=== PATIENT | female | born 1935 | race Caucasian/White ===

== ENCOUNTER 2018-03-15 12:57 | Inpatient (IN) ==
--- NOTE | 2018-03-15 13:48 | Emergency Department Note ---
Abdominal Pain HPI - General Chief Complaint: Abdominal Pain Stated Complaint: Abd pain, constipation Time Seen by Provider: 03/15/18 13:33 Source: EMS Mode of arrival: EMS Limitations: no limitations - History of Present Illness HPI Narrative: 82-year-old female who was brought in by ambulance secondary to back pain for one week. She states the pain in her back has gotten worse gradually. She also had a routine blood test done yesterday showing a white count of 14,000 also elevated pro calcitonin. She's also had frequency of urination. No bowel movement in the last 3 days. She has been a little bit nauseated, not vomiting, denies chest pain or shortness of breath. Former smoker, quit about 40 years ago. Significant history of stroke and atrial fibrillation 2 years ago with residual left-sided weakness MD Complaint: abdominal pain - Related Data Home Medications Medication Instructions Recorded Confirmed Hydrocodone/APAP 7.5/325Mg [[place] 1 tab PO Q6HP PRN 06/03/16 08/21/16 7.5/325Mg] Warfarin [Coumadin] 7.5 mg PO DAILY 06/03/16 08/21/16 Acetaminophen [Tylenol] 650 mg PO Q4-6HP PRN 08/21/16 08/21/16 Bisacodyl [Dulcolax] 10 mg NE DAILYP PRN 08/21/16 08/21/16 Docusate Sodium [Colace] 100 mg PO PRN PRN 08/21/16 08/21/16 Magnesium Hydroxide [Milk of 30 ml PO PRN PRN 08/21/16 08/21/16 Magnesia] Na Phos,M-B/Na Phos,Di-Ba [Fleets 1 NE PRN PRN 08/21/16 Adult] Sertraline HCl [Zoloft] 25 mg PO DAILY 08/21/16 08/21/16 Allergies Allergy/AdvReac Type Severity Reaction Status Date / Time dabigatran etexilate Allergy Unknown Unknown Verified 03/15/18 12:58 [From Pradaxa] lisinopril Allergy Unknown Unknown Verified 03/15/18 12:58 Review of Systems All systems ED: reviewed and negative except as stated. Constitutional: Reports: chills, weakness. Denies: fever ENT ED: Denies: ear pain, throat pain Cardiovascular: Reports: dyspnea on exertion. Denies: chest pain Respiratory: Denies: cough Gastrointestinal: Reports: abdominal pain, nausea. Denies: vomiting Genitourinary: Reports: frequency. Denies: dysuria, urgency Neurological: Reports: weakness. Denies: headache Endocrine: Reports: fatigue Abdominal Pain PMH - Past Medical History Attestation: Yes: The following information was validated with the patient. Medical history: Reports: atrial fibrillation, CVA, hypertension Surgical history ED: Reports: non-contributory Family history: Reports: non-contributory - Social History Smoking status: Former smoker Alcohol use: Reports: None Drug use: Reports: none Physical Exam Limitations: no limitations General appearance: alert, in no apparent distress Head: atraumatic, normocephalic Eye: Present: normal appearance, PERRL, EOMI. Absent: conjunctival injection, nystagmus ENT: mucous membranes dry, other (edentulous upper) Neck: Present: normal inspection, full ROM, trachea midline, other (decreased range of motion expected for age and condition.). Absent: tenderness, meningismus Chest: Present: normal inspection, symmetric chest wall rise Respiratory: Present: normal lung sounds bilaterally. Absent: respiratory distress, rales/crackles, wheezes Cardiovascular: Present: irregular rhythm, normal heart sounds Abdominal: Present: soft, tenderness, guarding. Absent: distention Abdominal tenderness: Present: RLQ Extremities: Present: other (contracted left arm and hand with very limited range of motion. Week on the left upper extremity as well.). Absent: calf tenderness Back: Present: normal inspection, full ROM, tenderness, CVA tenderness (L) Neurological: Present: alert, oriented X3, motor sensory deficit, other (old residual left-sided deficit.). Absent: normal gait Psychiatric: Present: depressed, flat affect Skin: Present: warm, dry, intact Course - Reevaluation(s) Reevaluation #1: Patient started on IV fluids. We did obtain a catheter urine sample which clearly was positive for nitrates as well as showing numerous wbc's and bacteria. Given that she has right-sided flank pain I think she has pyelonephritis with a white count of 18,000 and a CRP of 32 I think she clearly needs to be in the hospital. I discussed this with Dr. Pryor and he will be happy to see her here in the department, she was started on Rocephin after we thomas blood cultures. She does have a history of atrial fibrillation, EKG still pending at this time. Patient was given morphine for pain. Also Tylenol. Vital Signs Temperature 98.0 F 03/15/18 12:58 Pulse Rate 87 03/15/18 12:58 Respiratory Rate 20 03/15/18 12:58 Blood Pressure 160/142 03/15/18 12:58 Pulse Oximetry (%) 100 03/15/18 12:58 Temperature 99.9 F H 03/15/18 14:04 Pulse Rate 66 03/15/18 14:08 Respiratory Rate 20 03/15/18 14:35 Blood Pressure 99/68 03/15/18 14:26 Pulse Oximetry (%) 75 L 03/15/18 14:08 Abdominal Pain - MDM Narrative Medical decision making narrative: Final diagnosis is urosepsis, history of CVA with residual l left-sided weakness . History of atrial fibrillation. - Lab Data Result diagrams: 03/15/18 13:30 03/15/18 13:30 Lab Results 03/15/18 03/15/18 03/15/18 Range/Units 13:30 13:30 13:51 WBC 18.6 H (4.5-11.0) K/mcL RBC 3.59 L (4.00-5.20) M/mcL Hgb 11.5 L (12.0-15.0) g/dL Hct 35.0 L (36.0-48.0) % MCV 97.6 (80.0-100.0) fL MCH 32.2 (26.0-34.0) pg MCHC 33.0 (31.0-36.0) g/dL RDW 13.2 (11.5-14.5) % Plt Count 276 (140-440) K/mcL MPV 9.9 (7.4-10.4) fL Gran % 84.6 H (38.0-78.0) % Lymph % (Auto) 8.6 L (15.5-49.0) % [place] % (Auto) 6.5 (1.0-12.0) % Eos % (Auto) 0 (0.0-7.0) % Baso % (Auto) 0.3 (0.0-2.0) % Gran # 15.8 H (1.8-8.0) K/mcL Lymph # (Auto) 1.6 (1.5-4.8) K/mcL [place] # (Auto) 1.2 H (0.1-0.9) K/mcL Eos # (Auto) 0 (0.0-0.7) K/mcL Baso # (Auto) 0 (0.0-0.3) K/mcL VBG Lactic Acid (0.5-2.0) mmol/L Sodium 135 (133-145) mmol/L Potassium 4.5 (3.3-5.1) mmol/L Chloride 99 (96-108) mmol/L Carbon Dioxide 23 (22-30) mmol/L Anion Gap 13.0 (8-16) BUN 28 H (8-23) mg/dl Creatinine 1.6 H (0.6-1.1) mg/dl GFR Calculation 30 Glucose 97 (70-105) mg/dL Calcium 9.5 (8.6-10.4) mg/dl Total Bilirubin 1.4 H (0.0-1.0) mg/dL AST 15 (0-37) U/l ALT 8 (0-40) U/l Alkaline Phosphatase 74 (39-117) U/L C-Reactive Protein 32.7 H (0.0-0.8) mg/dl Total Protein 7.6 (5.9-8.4) gm/dL Albumin 3.6 (3.2-5.2) gm/dL Globulin 4.0 H (2.2-3.7) gm/dL Albumin/Globulin Ratio 0.9 L (1.0-2.3) Procalcitonin (<0.10) ng/mL Urine Color Urine Appearance Urine pH (5.0-9.0) Ur Specific [place] (1.000-1.035) Urine Protein (NEG) mg/dL Urine Glucose (UA) (NEG) mg/dL Urine Ketones (NEG) mg/dL Urine Occult Blood (<0.03) mg/dL Urine Nitrate (NEG) Urine Bilirubin (NEG) mg/dL Urine Urobilinogen (NEG) mg/dL Ur Leukocyte Esterase (NEG) /uL Urine RBC (0-1) /hpf Urine WBC (0-4) /hpf Ur Squamous Epith Cells (0-4) /hpf Urine Bacteria (0) /hpf Urine Mucus (0) /hpf Ur Culture Indicated? 03/15/18 03/15/18 03/15/18 Range/Units 13:51 13:52 14:00 WBC (4.5-11.0) K/mcL RBC (4.00-5.20) M/mcL Hgb (12.0-15.0) g/dL Hct (36.0-48.0) % MCV (80.0-100.0) fL MCH (26.0-34.0) pg MCHC (31.0-36.0) g/dL RDW (11.5-14.5) % Plt Count (140-440) K/mcL MPV (7.4-10.4) fL Gran % (38.0-78.0) % Lymph % (Auto) (15.5-49.0) % [place] % (Auto) (1.0-12.0) % Eos % (Auto) (0.0-7.0) % Baso % (Auto) (0.0-2.0) % Gran # (1.8-8.0) K/mcL Lymph # (Auto) (1.5-4.8) K/mcL [place] # (Auto) (0.1-0.9) K/mcL Eos # (Auto) (0.0-0.7) K/mcL Baso # (Auto) (0.0-0.3) K/mcL VBG Lactic Acid 1.3 (0.5-2.0) mmol/L Sodium (133-145) mmol/L Potassium (3.3-5.1) mmol/L Chloride (96-108) mmol/L Carbon Dioxide (22-30) mmol/L Anion Gap (8-16) BUN (8-23) mg/dl Creatinine (0.6-1.1) mg/dl GFR Calculation Glucose (70-105) mg/dL Calcium (8.6-10.4) mg/dl Total Bilirubin (0.0-1.0) mg/dL AST (0-37) U/l ALT (0-40) U/l Alkaline Phosphatase (39-117) U/L C-Reactive Protein (0.0-0.8) mg/dl Total Protein (5.9-8.4) gm/dL Albumin (3.2-5.2) gm/dL Globulin (2.2-3.7) gm/dL Albumin/Globulin Ratio (1.0-2.3) Procalcitonin 7.28 (<0.10) ng/mL Urine Color Yellow Urine Appearance Turbid Urine pH 5.0 (5.0-9.0) Ur Specific [place] 1.015 (1.000-1.035) Urine Protein 30 A (NEG) mg/dL Urine Glucose (UA) Negative (NEG) mg/dL Urine Ketones Neg (NEG) mg/dL Urine Occult Blood 0.03 A (<0.03) mg/dL Urine Nitrate Neg (NEG) Urine Bilirubin Neg (NEG) mg/dL Urine Urobilinogen Neg (NEG) mg/dL Ur Leukocyte Esterase 500 A (NEG) /uL Urine RBC 0 (0-1) /hpf Urine WBC > 182 H (0-4) /hpf Ur Squamous Epith Cells 14 H (0-4) /hpf Urine Bacteria Many A (0) /hpf Urine Mucus Mod (0) /hpf Ur Culture Indicated? No Disposition Pt seen by TRAM DRIVER/PA only: No Clinical Impression: Pyelonephritis, Atrial fibrillation, Stroke Disposition: Xfer As Inpt ([facility]) Condition: Fair Referrals: Jethro Borja MD [Primary Care Provider] -
[2018-03-15] MEDS ORDERED: ACETAMINOPHEN 325 MG TABLET PO ONE (13:52)
[2018-03-15] MEDS: 0.9 % SODIUM CHLORIDE 1,000 ML IV ONE ×2 (14:04→15:05)
[2018-03-15 14:18] LABS: Basophils # (Auto) 0 K/mcL (0.0-0.3); Basophils % (Auto) 0.3 % (0.0-2.0); Eosinophils # (Auto) 0 K/mcL (0.0-0.7); Eosinophils % (Auto) 0 % (0.0-7.0); Granulocytes % (Auto) 84.6 % (38.0-78.0); Lymphocytes # (Auto) 1.6 K/mcL (1.5-4.8); Lymphocytes % (Auto) 8.6 % (15.5-49.0); Mean Cell Volume 97.6 fL (80.0-100.0); Monocytes # (Auto) 1.2 K/mcL (0.1-0.9); Monocytes % (Auto) 6.5 % (1.0-12.0); Platelet Count 276 K/mcL (140-440); RBC 3.59 M/mcL (4.00-5.20); Red Cell Distribution Width 13.2 % (11.5-14.5)
--- NOTE | 2018-03-15 14:36 | XRay Report ---
CLINICAL INFORMATION: fever COMPARISON: 06/14/2016 FINDINGS: Moderate cardiomegaly is unchanged. Mediastinum and pulmonary vessels are normal. The lungs are clear. No effusions. IMPRESSION: Moderate stable cardiomegaly. No acute disease Interpreted and Authenticated by: Zac Garcia 03/15/18
[2018-03-15 14:44] LABS: Appearance,Urine TURBID; Bacteria,Urine MANY /hpf (0); Bilirubin,Urine NEG (NEG); Color,Urine YELLOW; Glucose,Urine (UA) NEGATIVE (NEG); Leukocyte Esterase,Urine 500 /uL (NEG); Mucus,Urine MOD /hpf (0); Protein,Urine 30 mg/dL (NEG); Specific Gravity,Urine 1.015 (1.000-1.035); Urine Blood 0.03 mg/dL (<0.03); Urine RBC 0 /hpf (0-1); Urine Squamous Epithelial Cell 14 /hpf (0-4); Urine WBC > 182 /hpf (0-4); Urobilinogen,Urine NEG (NEG)
[2018-03-15 14:46] LABS: ALT/SGPT 8 U/l (0-40); Albumin 3.6 gm/dL (3.2-5.2); Albumin/Globulin Ratio 0.9 (1.0-2.3); Alkaline Phosphatase 74 U/L (39-117); Blood Urea Nitrogen 28 mg/dl (8-23)
[2018-03-15] MEDS ORDERED: cefTRIAXone 1 GM VIAL IV ONE ×2 (14:47→20:00)
[2018-03-15] MEDS ORDERED: LACTATED RINGERS 1,000 ML IV ONE ×2 (15:06→17:29)
--- NOTE | 2018-03-15 15:56 | Internal Med History&Physical ---
Medical - H&P: HPI Patient information: Note initiated : 03/15/18 at 3:52 pm Service Date, if different from initiated Date: [] Patient: Lakisha Bills a 82 y/o F admitted on for Abd Pain, Constipation. Chief Complaint: [] History of present illness: Ms. Bills is a 82 year old F who lives in a ch[facility], history of CVA, usually ambulates with the help of a walker comes to the emergency room for evaluation of back pain that has been going on for the last 1 week. The patient notes that the back pain started a week ago H in the mid and lower back, and radiates on the sides as well as the flanks. Patient notes that the pain has been constant since then, the patient rates the pain severe. She notes that the pain is worse with ambulation, and better with rest. The pain has been associated with some nausea, and vomiting. That happened 2 days ago. She is also constipated for the last 2 days she admits to being constipated because the pain has prevented her from going to the bathroom. The patient denies any urinary complaints. According to the ER provider the patient had some urine studies sent yesterday and it showed that she had a UTI and an elevated pro-calcitonin, on reviewing her labs today the patient was sent here for further evaluation In the ER the patient had a low-grade temperature 99.9, heart rate 85 blood pressure 109/67 [had dropped to as low as 71/31] saturating 91% on room air. Chest x-ray shows cardiomegaly no acute infiltrates Labs show WBC count of 18.6, hemoglobin 11.5 platelets 276, lactic acid 1.3, total bili Liang 1.4 sodium 135 potassium 4.5 creatinine 1.6 bicarbonate 23 glucose 97. CRP elevated at 37.7, pro calcitonin elevated at 7.28. The patient is being admitted to the hospital for further management Pt wishes for DNR, comfort care? but ok with bipap? notes ok to do what we feel is needed to help her. POA was called by ER provider, it seems they are ok with interventions . All systems: reviewed and no additional remarkable complaints except as stated (as per HPI rest negative) Medical - H&P: PMH Medical history: Medical History Stroke (Acute) Atrial fibrillation (Acute) HTN HLD Obesity Osteoporosis GERD Back pain Surgical history: hip replacement surgery Family history: reviewed and not pertinent Pertinent family history: Father had parkinsons. Social history: lives in SNF Ex smoker no active drug use reported Medical - H&P: Meds Home Medications Medication Instructions Recorded Confirmed Type Acetaminophen [Tylenol] 650 mg PO BIDP PRN 08/21/16 03/15/18 History Bisacodyl [Dulcolax] 10 mg MO DAILYP PRN 08/21/16 03/15/18 History Docusate Sodium [Colace] 100 mg PO BIDP PRN 08/21/16 03/15/18 History Na Phos,M-B/Na Phos,Di-Ba [Fleets 1 tube MO PRN PRN 08/21/16 03/15/18 History Adult] Sertraline HCl [Zoloft] 25 mg PO DAILY 08/21/16 03/15/18 History Baclofen 5 mg PO TID 03/15/18 03/15/18 History Furosemide [Lasix] 40 mg PO DAILY 03/15/18 03/15/18 History HYDROcodone/APAP 5/325MG [[place] 1 tab PO Q6HP PRN 03/15/18 03/15/18 History 5-325Mg] LORazepam [Ativan] 2 mg IM ONCE PRN 03/15/18 03/15/18 History Lactobacillus [Culturelle] 1 cap PO BID 03/15/18 03/15/18 History Loperamide [Imodium] 2 mg PO PRN PRN 03/15/18 03/15/18 History Magnesium Hydroxide [Milk of 400 mg PO PRN PRN 03/15/18 03/15/18 History Magnesia] Metoprolol Tartrate 100 mg PO BID 03/15/18 03/15/18 History Nitroglycerin [Nitrostat] 0.4 mg SL Q5MINP PRN 03/15/18 03/15/18 History Ondansetron HCl [Zofran] 8 mg PO Q8H PRN 03/15/18 03/15/18 History Ranitidine HCl [Heartburn Relief] 75 mg PO BID 03/15/18 03/15/18 History Rivaroxaban [Xarelto] 20 mg PO DAILY 03/15/18 03/15/18 History Spironolactone [Aldactone] 25 mg PO DAILY 03/15/18 03/15/18 History Telmisartan [Micardis] 80 mg PO DAILY 03/15/18 03/15/18 History Vits A and D/White Pet/Lanolin [A 42.5 gm TP PRN PRN 03/15/18 03/15/18 History and D Ointment] amLODIPine [Norvasc] 10 mg PO DAILY 03/15/18 03/15/18 History Allergies Allergy/AdvReac Type Severity Reaction Status Date / Time dabigatran etexilate Allergy Unknown Unknown Verified 03/15/18 12:58 [From Pradaxa] lisinopril Allergy Unknown Unknown Verified 03/15/18 12:58 Medical - H&P: Exam - Constitutional Vitals: Temp Pulse Resp BP Pulse Ox 97.2 F 77 22 124/104 94 03/15/18 15:03 03/15/18 15:26 03/15/18 15:41 03/15/18 15:32 03/15/18 15:26 Exam: GENERAL: The patient is a well-developed, well-nourished in no apparent distress. Is alert and oriented x3. VITAL SIGNS: Reviewed and as noted elsewhere. HEENT: Head is normocephalic and atraumatic. Extraocular muscles are intact. Pupils are equal, round, and reactive to light. Nares appeared normal. Mouth appears any without lesions. Mucous membranes are dry . NECK: Normal to inspection, Supple, No lymphadenopathy or thyromegaly. LUNGS: Air entry equal on both sides, no wheezing, crackles or rhonchi noted. No accessory muscles of respiration HEART: Regular rate and irrhythm normal, S1 and S2 heard, no Gallop, S3 or Rub Noted, No Gross murmur heard. ABDOMEN: Soft, large pannus, positive bowel tones, bilateral flank tenderness present, moving the patient also causes back pain. EXTREMITIES: No cyanosis, clubbing, rash, lesions or edema. NEUROLOGIC: Cranial nerves II through XII are grossly intact. Motor and Sensory System Grossly Intact PSYCHIATRIC: Normal affect, Normal Mood. Appropriate Behavior. SKIN: No ulceration or wounds noted, No jaundice, No rash noted. Medical - H&P: Reslt - Labs CBC & Chem 7: 03/15/18 13:30 03/15/18 13:30 Labs: Short CBC 03/15/18 Range/Units 13:30 WBC 18.6 H (4.5-11.0) K/mcL Hgb 11.5 L (12.0-15.0) g/dL Hct 35.0 L (36.0-48.0) % Plt Count 276 (140-440) K/mcL BMP 03/15/18 13:30 Sodium 135 Potassium 4.5 Chloride 99 Carbon Dioxide 23 BUN 28 H Creatinine 1.6 H Glucose 97 Calcium 9.5 Liver Function 03/15/18 Range/Units 13:30 Total Bilirubin 1.4 H (0.0-1.0) mg/dL AST 15 (0-37) U/l ALT 8 (0-40) U/l Alkaline Phosphatase 74 (39-117) U/L Albumin 3.6 (3.2-5.2) gm/dL Urine 03/15/18 Range/Units 14:00 Urine Color Yellow Urine Appearance Turbid Urine pH 5.0 (5.0-9.0) Ur Specific [place] 1.015 (1.000-1.035) Urine Protein 30 A (NEG) mg/dL Urine Glucose (UA) Negative (NEG) mg/dL Medical - H&P: A/P - Narrative A/P Narrative: A/P Acute pyleonephritis, -Patient has back pain, UTI clinically has pyelonephritis, treated with IV Rocephin, urine cultures blood culture sent de-escalate antibiotics per sensitivity. Back pain, severe -She also has significant muscle spasm it seems along with flank tenderness, I will treat this with IV Tylenol and narcotics as needed. Use methocarbamol for muscle relaxation see how she responds. Consider CT abdomen and pelvis tomorrow if the patient does not show any signs of improvement Sepsis -Low blood pressure documented in the ED but responded to IV fluids, give 1 more liter LR bolus, and then maintenance fluids lactic acid is normal treat underlying condition h/o Atrial fibrillation -Heart rate is stable, metoprolol at home hold medication for now patient takes Xarelto for anticoagulant h/o CVA -Ambulate with a walker Hypertension -Hold blood pressure medications for now, resume once blood pressure is stable from over 24 hours Osteoporosis/Obesity (BMI > 30), GERD, Hyperlipidemia -Resume home medications as appropriate, continue outpatient therapy Diet Cardiac DNR code status OT/PT/ST eval
[2018-03-15] MEDS ORDERED: FLEETS ADULT ENEMA PR PRN (17:29)
[2018-03-15] MEDS ORDERED: DOCUSATE SODIUM 100 MG CAPSULE PO PRN (17:29)
[2018-03-15] MEDS ORDERED: HYDROmorphone 2 MG/ML VIAL IV PRN (17:29)
[2018-03-15] MEDS ORDERED: ONDANSETRON 4 MG/2 ML VIAL IV PRN (17:29)
[2018-03-15] MEDS ORDERED: NITROGLYCERIN (PP) 0.4 MG TAB.SUBL (#25) SL PRN (17:29)
[2018-03-15] MEDS ORDERED: ALBUTEROL SULFATE 2.5 MG/3 ML NEBULIZER NEB PRN (17:29)
[2018-03-15] MEDS ORDERED: BISACODYL 10 MG SUPP.RECT PR PRN (17:29)
[2018-03-15] MEDS ORDERED: NALOXONE HCL 0.4 MG/ML VIAL IV PRN (17:29)
[2018-03-15] MEDS ORDERED: cefTRIAXone 1 GM in DEXTROSE 5% IN WATER 50 ML IV SCH (17:29)
[2018-03-15] MEDS: ACETAMINOPHEN 1,000 MG/100 ML BOTTLE IV SCH ×3 (19:03→21:38)
[2018-03-15] MEDS: DEXTROSE 5%-1/2NS W/20MEQ KCL 1,000 ML IV SCH (19:44)
[2018-03-15] MEDS ORDERED: NITROGLYCERIN 0.4 MG TAB.SUBL SL PRN (19:47)
[2018-03-15] MEDS: LACTOBACILLUS 1 CAPSULE PO SCH (21:39)
[2018-03-15] MEDS: 0.9 % SODIUM CHLORIDE 10 ML SYRINGE IV SCH (21:42)
[2018-03-15] MEDS: oxyCODONE HCL 5 MG TABLET PO PRN (21:59)
[2018-03-16] MEDS: ACETAMINOPHEN 1,000 MG/100 ML BOTTLE IV SCH ×3 (01:16→17:49)
[2018-03-16] MEDS: 0.9 % SODIUM CHLORIDE 10 ML SYRINGE IV SCH ×2 (04:46→14:25)
[2018-03-16] MEDS: DEXTROSE 5%-1/2NS W/20MEQ KCL 1,000 ML IV SCH (08:58)
[2018-03-16] MEDS: SERTRALINE 50 MG TABLET PO SCH (08:59)
[2018-03-16] MEDS: LACTOBACILLUS 1 CAPSULE PO SCH ×2 (08:59→20:06)
[2018-03-16] MEDS ORDERED: RIVAROXABAN 20 MG TABLET PO SCH (09:00)
[2018-03-16] MEDS ORDERED: cefTRIAXone 1 GM VIAL IV SCH (09:00)
[2018-03-16] MEDS ORDERED: VANCOMYCIN PER PHARMACY IV SCH (09:05)
[2018-03-16] MEDS ORDERED: VANCOMYCIN 1,500 MG in 0.9 % SODIUM CHLORIDE 500 ML IV ONE (10:00)
[2018-03-16] MEDS: METHOCARBAMOL 1,000 MG/10 ML VIAL IV PRN (10:02)
[2018-03-16 10:22] LABS: Basophils # (Auto) 0 K/mcL (0.0-0.3); Basophils % (Auto) 0 % (0.0-2.0); Eosinophils # (Auto) 0 K/mcL (0.0-0.7); Eosinophils % (Auto) 0.3 % (0.0-7.0); Granulocytes % (Auto) 83.6 % (38.0-78.0); Lymphocytes # (Auto) 1.3 K/mcL (1.5-4.8); Lymphocytes % (Auto) 8.2 % (15.5-49.0); Mean Cell Volume 97.3 fL (80.0-100.0); Mean Corpuscular HGB Conc 32.9 g/dL (31.0-36.0); Monocytes # (Auto) 1.2 K/mcL (0.1-0.9); Monocytes % (Auto) 7.9 % (1.0-12.0); Platelet Count 265 K/mcL (140-440); RBC 3.59 M/mcL (4.00-5.20); Red Cell Distribution Width 13.4 % (11.5-14.5)
[2018-03-16 10:42] LABS: ALT/SGPT 7 U/l (0-40); Albumin 3.4 gm/dL (3.2-5.2); Albumin/Globulin Ratio 0.8 (1.0-2.3); Alkaline Phosphatase 71 U/L (39-117); Bilirubin,Direct 0.3 mg/dL (0.0-0.3); Blood Urea Nitrogen 25 mg/dl (8-23); Gamma Glutamyl Transpeptidase 25 U/L (5-36); Uric Acid 6.4 mg/dL (2.5-8.0)
[2018-03-16] MEDS ORDERED: cefTRIAXone 1 GM VIAL IV ONE (11:14)
--- NOTE | 2018-03-16 12:19 | Cat Scan Report ---
CLINICAL INFORMATION: Pyelonephritis COMPARISON: Chest CT 06/09/2016 TECHNIQUE: 0.625 mm helical slices were obtained from the mid heart through the subtrochanteric regions. Following reconstruction, 2.5 mm sagittal, coronal and axial reformatted images were processed and reviewed at bone and soft tissue windows.The exam was performed using radiation dose optimization techniques including, but not limited to, automated exposure control, adjustment of the mA and/or kV according to patient size and use of iterative reconstruction technique. FINDINGS: Lung bases show subsegmental atelectasis in both posterior lower lobes. No effusions or infiltrates.. The heart is moderately enlarged with a tiny pericardial effusion Images through the abdomen show the noncontrast liver, gallbladder and bile ducts, both adrenal glands, spleen, pancreas and aorta are normal in size, configuration and attenuation without focal lesion. There is malrotation of the right kidney. A 12 mm hyperdense lesion in the anterior cortex mid right kidney likely represents a hyperdense cyst or benign dystrophic calcification. A 9 mm fat-containing angiomyolipoma in the lateral cortex mid left kidney is noted. There is a 3 mm nonobstructing stone in an inferior calyx of the left kidney but no obstructing stone or hydronephrosis. Small amount of fluid is seen in the perinephric space, adjacent to the mid/inferior pole of the right kidney, is uncertain etiology and significance. There is no evidence of lali abscess. Images through the pelvis show Bennett catheter properly positioned urinary bladder which is decompressed - no gross bladder abnormality. Postmenopausal, anteflexed uterus is normal in size with a 6 mm calcified subserosal fibroid in the uterine fundus. Neither ovary is identified likely due to atrophy. Scattered sigmoid diverticula noted but no acute diverticulitis. The remainder of the colon, appendix, small bowel and stomach are normal. Bone windows show degenerative disc disease throughout the lumbar spine with a mild chronic T11 compression fracture. IMPRESSION: 1. Small amount of fluid in the right perinephric space inferiorly which is nonspecific but may be supportive of pyelonephritis. There is no evidence of upper urinary tract infection complications such as abscess or ureter obstruction. 2. 12 mm hyperdense cyst versus calcification mid right kidney. 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 3. 2.9 mm nonobstructing stone inferior calyx left kidney Interpreted and Authenticated by: Zac Garcia 03/16/18
--- NOTE | 2018-03-16 12:55 | Magnetic Resonance Report ---
CLINICAL INFORMATION: Back pain and bacteremia evaluate for discitis osteomyelitis COMPARISON: Lateral chest x-ray 08/21/2016 TECHNIQUE: Sagittal T1 FLAIR, STIR, fast spin echo T2, axial T2 weighted images were acquired of the thoracic spine. FINDINGS: The thoracic spine is anatomically aligned. Mixed red and yellow hematopoietic elements are noted. No evidence of osteomyelitis. Chronic Schmorl's node invaginates the superior T11 endplate resulting in mild chronic wedging. It is unchanged from previous plane film. Thoracic cord is normal in contour and caliber homogeneous signal. The central canal lateral recess and IV foraminal are normal with each level. All discs show desiccation change without evidence of extrusion or protrusion. The paraspinous soft tissues are normal. IMPRESSION: 1. No evidence of osteomyelitis or discitis. 2. Mild chronic wedging T11 and T12 vertebral bodies - unchanged 2016 plain films Interpreted and Authenticated by: Zac Garcia 03/16/18
--- NOTE | 2018-03-16 12:58 | Magnetic Resonance Report ---
CLINICAL INFORMATION: Back pain and bacteremia. Evaluate for discitis/osteomyelitis COMPARISON: None. TECHNIQUE: Sagittal T1 FLAIR, STIR, fast spin echo T2, axial T2 weighted images were acquired. FINDINGS: Lumbar spine is anatomically aligned and there are multiple small chronic Schmorl's nodes invaginating all vertebral endplate. No evidence of osteomyelitis or discitis. Mixed red and yellow hematopoetic elements noted. Conus medullaris ends at T12 homogeneous signal. Cauda equina roots are normal. At L1-2 and L2-3, mild broad disc spur complexes result in mild thecal sac impingement and mild bilateral IV foraminal narrowing. No definite root impingement. At L3-4, mild broad-based protrusion with left-sided asymmetry and facet arthropathy result in moderate right IV foraminal narrowing possibly impinging the exiting right L3 nerve root. At L4-5, mild broad disc protrusion and facet arthropathy result in minimal bilateral IV foraminal narrowing. Mild facet arthropathy appreciated At L5-S1, moderate broad disc protrusion results in mild bilateral IV foraminal narrowing mildly effacing the exiting L5 nerve root. Mild facet arthropathy noted IMPRESSION: No evidence of osteomyelitis or discitis Mild multilevel degenerative change Interpreted and Authenticated by: Zac Garcia 03/16/18
--- NOTE | 2018-03-16 15:09 | Internal Med Progress Note ---
Medical - PN: Subj Patient information: Note initiated : 03/16/18 at 3:05 pm Service Date, if different from initiated Date: [] Patient: Lakisha Bills 82 y/o F admitted on 03/15/18 for Abd Pain, Constipation. Chief Complaint: [] Interval history: Ms. Bills is a 82 year old F who lives in a [place], history of CVA, usually ambulates with the help of a walker comes to the emergency room for evaluation of back pain that has been going on for the last 1 week. The patient notes that the back pain started a week ago H in the mid and lower back, and radiates on the sides as well as the flanks. Patient notes that the pain has been constant since then, the patient rates the pain severe. She notes that the pain is worse with ambulation, and better with rest. The pain has been associated with some nausea, and vomiting. That happened 2 days ago. She is also constipated for the last 2 days she admits to being constipated because the pain has prevented her from going to the bathroom. The patient denies any urinary complaints. According to the ER provider the patient had some urine studies sent yesterday and it showed that she had a UTI and an elevated pro-calcitonin, on reviewing her labs today the patient was sent here for further evaluation In the ER the patient had a low-grade temperature 99.9, heart rate 85 blood pressure 109/67 [had dropped to as low as 71/31] saturating 91% on room air. Chest x-ray shows cardiomegaly no acute infiltrates Labs show WBC count of 18.6, hemoglobin 11.5 platelets 276, lactic acid 1.3, total bili Liang 1.4 sodium 135 potassium 4.5 creatinine 1.6 bicarbonate 23 glucose 97. CRP elevated at 37.7, pro calcitonin elevated at 7.28. The patient is being admitted to the hospital for further management Pt wishes for DNR, comfort care? but ok with bipap? notes ok to do what we feel is needed to help her. POA was called by ER provider, it seems they are ok with interventions . 03/16 Patient seen and examined, no acute overnight events. Back pain is somewhat better today. Blood cultures positive for gram-positive cocci on speaking with the labs this it is strep agalactiae. We will send the urine for culture as it seems that reflux cultures were not sent. Vancomycin started I have final isolation and sensitivity dose of Rocephin increased to [address] abdomen and pelvis done some perinephric stranding possible for pyelonephritis. MRI of thoracic and lumbar vertebrae done to rule out ostium mellitus, then negative Pertinent ROS: Denies headache, dizziness Denies chest pain, palpitations Denies cough or shortness of breath Denies abdominal pain, nausea or vomiting. back pain present - Constitutional Vitals: Vital Signs Temp Pulse Resp BP Pulse Ox 99.1 F H 81 20 121/59 95 03/16/18 12:00 03/16/18 08:15 03/16/18 12:00 03/16/18 12:00 03/16/18 14:00 Period Temp Pulse Resp BP Sys/Amador Pulse Ox Last 24 Hr 97.4 F-99.1 F 77-92 10-25 90-132/55-104 91-97 Intake and Output 03/16/18 03/16/18 03/16/18 05:59 13:59 21:59 Intake Total 550 / 2550 1092 / 1092 Output Total 550 / 550 Balance 1999 1092 / 1092 Weight 213 lb Patient Weight 03/17/18 05:59 Weight 213 lb Intake & Output: Intake & Output 03/16/18 03/16/18 03/16/18 05:59 13:59 21:59 Intake Total 550 / 2550 1092 / 1092 Output Total 550 / 550 Balance 1999 1092 / 1092 Weight 213 lb Intake: IV 100 / 2100 1092 / 1092 Dextrose 5%-1/2Ns W/20Meq KCl 1 992 / 992 ,000 ml @ 75 mls/hr IV .[id number] [facility] Rx#:[id number] Oral 450 / 450 Output: Urine Catheter Amount 550 / 550 Other: Urine Appearance Cloudy Cloudy Urine Color Bright Yellow Bright Yellow Uretheral (Bennett) Dark Yellow Exam: Constitutional; Afebrile, cooperative, alert, not in distress. Eyes- No icterus, , No periorbital swelling Ears- Ext ear normal, hearing normal to conversation. Neck- Midline trachea, supple Respiratory system: Air Entry equal on both sides, No crackles or wheezing, no rhonchi. CVS- Rate rhythm irregular, S1,S2 heard, no gallop, no rub. Abdomen- Soft nontender abdomen, no organomegaly, no tenderness, no guarding or rigidity, RN PERINATAL- AOOx3, moving all extremities, no gross focal deficit noted. Medical - PN: Obj Da - Labs CBC & Chem 7: 03/16/18 10:00 03/16/18 10:00 Labs: Abnormal Lab Results 03/16/18 03/16/18 03/15/18 10:00 10:00 14:00 WBC 15.4 H RBC 3.59 L Hgb 11.5 L Hct 34.9 L Gran % 83.6 H Lymph % (Auto) 8.2 L Gran # 12.8 H Lymph # (Auto) 1.3 L Denali # (Auto) 1.2 H BUN 25 H Creatinine 1.5 H Glucose 117 H Total Bilirubin C-Reactive Protein Globulin 4.1 H Albumin/Globulin Ratio 0.8 L Urine Protein 30 A Urine Occult Blood 0.03 A Ur Leukocyte Esterase 500 A Urine WBC > 182 H Ur Squamous Epith Cells 14 H Urine Bacteria Many A 03/15/18 03/15/18 03/15/18 13:51 13:30 13:30 WBC 18.6 H RBC 3.59 L Hgb 11.5 L Hct 35.0 L Gran % 84.6 H Lymph % (Auto) 8.6 L Gran # 15.8 H Lymph # (Auto) Denali # (Auto) 1.2 H BUN 28 H Creatinine 1.6 H Glucose Total Bilirubin 1.4 H C-Reactive Protein 32.7 H Globulin 4.0 H Albumin/Globulin Ratio 0.9 L Urine Protein Urine Occult Blood Ur Leukocyte Esterase Urine WBC Ur Squamous Epith Cells Urine Bacteria Meds: Medications Albuterol Sulfate (Ventolin) 2.5 mg NEB Q2HP PRN PRN Reason: Shortness Of Breath Bisacodyl (Dulcolax) 10 mg [place] DAILYP PRN PRN Reason: Constipation Docusate Sodium (Colace) 100 mg PO BIDP PRN PRN Reason: Constipation Hydromorphone HCl (Dilaudid) 0.5 mg IV Q2HP PRN PRN Reason: PAIN LEVEL > 6 Potassium Chloride/Dextrose/Sod Cl (Dextrose 5%-1/2ns W/20meq Kcl) 1,000 mls @ 75 mls/hr IV .[id number] [facility] Last Admin: 01/12/19 08:58 Dose: 75 mls/hr Documented by: Acetaminophen (Ofirmev) 1,000 mg in 100 mls @ 200 mls/hr IV Q8H [facility] Last Infusion: 03/16/18 11:59 Dose: Infused Documented by: Ceftriaxone Sodium 2 gm/ (Dextrose) 50 mls @ 100 mls/hr IV DAILY [facility] Lactobacillus Rhamnosus (Culturelle) 1 cap PO BID [facility] Last Admin: 03/16/18 08:59 Dose: 1 cap Documented by: Methocarbamol (Robaxin) 750 mg IV Q6HP PRN PRN Reason: Muscle Spasm Last Admin: 03/16/18 10:02 Dose: 750 mg Documented by: Naloxone HCl (Narcan) 0.1 mg IV Q2MIN PRN PRN Reason: Opiate Reversal Nitroglycerin (Nitrostat) 0.4 mg SL Q5M PRN PRN Reason: Chest Pain Ondansetron HCl (Zofran) 4 mg IV Q6HP PRN PRN Reason: Nausea And Vomiting Oxycodone HCl (Roxicodone) 5 mg PO Q4HP PRN PRN Reason: PAIN LEVEL 3-6 Last Admin: 03/15/18 21:59 Dose: 5 mg Documented by: Rivaroxaban (Xarelto) 15 mg PO QPMCC [facility] Sertraline HCl (Zoloft) 25 mg PO DAILY [facility] Last Admin: 03/16/18 08:59 Dose: 25 mg Documented by: Sodium Biphosphate/Sodium Phosphate (Fleets Adult) 1 dose [place] DAILYP PRN PRN Reason: Constipation Sodium Chloride (Saline Flush) 10 ml IV Q8 [facility] Last Admin: 03/16/18 14:25 Dose: 10 ml Documented by: Vancomycin HCl (Vancomycin Per Pharmacy) 1 order IV [facility] [place] Medical - PN: A/P - Time Spent With Patient Total time spent is greater than 50% in coordination of care (as documented) at patient's floor/unit and/or counseling patient: - Narrative A/P Narrative: A/P Acute pyelonephritis, -Patient has back pain, UTI clinically has pyelonephritis, treated with IV Rocephin, urine cultures blood culture sent de-escalate antibiotics per sensitivity gram positive bacteremia -get echo, mri spine t and l is negative, vanco added, dose of rocephin increased to 2 gms q24 hrs Back pain, severe -She also has significant muscle spasm it seems along with flank tenderness, I will treat this with IV Tylenol and narcotics as needed. Use methocarbamol for muscle relaxation see how she responds. neg MR for infection in spine. Sepsis -stable bp, clinically improving. h/o Atrial fibrillation -Heart rate is stable, metoprolol at home hold medication for now patient takes Xarelto for anticoagulant h/o CVA -Ambulates with cane or walker at [facility]. Hypertension -Hold blood pressure medications for now, resume once blood pressure is stable from over 24 hours Osteoporosis/Obesity (BMI > 30), GERD, Hyperlipidemia -Resume home medications as appropriate, continue outpatient therapy Diet Cardiac DNR code status OT/PT/ST eval Medical - PN: Qual - VTE Deep Vein Thrombosis/Pulmonary Embolism Present on Admission: No
[2018-03-16] MEDS: oxyCODONE HCL 5 MG TABLET PO PRN (17:02)
[2018-03-16] MEDS: RIVAROXABAN 15 MG TABLET PO SCH (17:02)
[2018-03-17] MEDS: DEXTROSE 5%-1/2NS W/20MEQ KCL 1,000 ML IV SCH ×4 (00:09→18:20)
[2018-03-17] MEDS: 0.9 % SODIUM CHLORIDE 10 ML SYRINGE IV SCH ×4 (00:09→21:41)
[2018-03-17] MEDS: ACETAMINOPHEN 1,000 MG/100 ML BOTTLE IV SCH ×3 (01:59→19:28)
[2018-03-17 05:28] LABS: Basophils # (Auto) 0 K/mcL (0.0-0.3); Basophils % (Auto) 0.3 % (0.0-2.0); Eosinophils # (Auto) 0.1 K/mcL (0.0-0.7); Granulocytes % (Auto) 75.8 % (38.0-78.0); Lymphocytes # (Auto) 1.2 K/mcL (1.5-4.8); Lymphocytes % (Auto) 11.8 % (15.5-49.0); Mean Cell Volume 97.7 fL (80.0-100.0); Mean Corpuscular HGB Conc 33.7 g/dL (31.0-36.0); Monocytes # (Auto) 1.1 K/mcL (0.1-0.9); Monocytes % (Auto) 11.1 % (1.0-12.0); Platelet Count 244 K/mcL (140-440); Red Cell Distribution Width 13.3 % (11.5-14.5)
[2018-03-17 05:44] LABS: Vancomycin,Random 9.4 ug/mL
[2018-03-17 05:53] LABS: ALT/SGPT 6 U/l (0-40); Albumin 2.7 gm/dL (3.2-5.2); Albumin/Globulin Ratio 0.8 (1.0-2.3); Alkaline Phosphatase 74 U/L (39-117); Bilirubin,Direct 0.2 mg/dL (0.0-0.3); Blood Urea Nitrogen 20 mg/dl (8-23); Gamma Glutamyl Transpeptidase 35 U/L (5-36); Uric Acid 5.9 mg/dL (2.5-8.0)
[2018-03-17] MEDS: LACTOBACILLUS 1 CAPSULE PO SCH ×2 (08:52→21:34)
[2018-03-17] MEDS: SERTRALINE 50 MG TABLET PO SCH (08:52)
[2018-03-17] MEDS: oxyCODONE HCL 5 MG TABLET PO PRN ×2 (08:53→18:15)
[2018-03-17] MEDS: cefTRIAXone 2 GM in DEXTROSE 5% IN WATER 50 ML IV SCH (08:55)
[2018-03-17] MEDS ORDERED: VANCOMYCIN 1,500 MG in 0.9 % SODIUM CHLORIDE 500 ML IV SCH (09:00)
[2018-03-17] MEDS ORDERED: cefTRIAXone 1 GM VIAL IV SCH (09:00)
[2018-03-17] MEDS: BACLOFEN 10 MG TABLET PO SCH ×2 (14:21→21:34)
--- NOTE | 2018-03-17 15:47 | Internal Med Progress Note ---
Medical - PN: Subj Patient information: Note initiated : 03/17/18 at 3:45 pm Service Date, if different from initiated Date: [] Patient: Lakisha Bills 82 y/o F admitted on 03/15/18 for Abd Pain, Constipation. Chief Complaint: [] Interval history: Ms. Bills is a 82 year old F who lives in a [facility], history of CVA, usually ambulates with the help of a walker comes to the emergency room for evaluation of back pain that has been going on for the last 1 week. The patient notes that the back pain started a week ago H in the mid and lower back, and radiates on the sides as well as the flanks. Patient notes that the pain has been constant since then, the patient rates the pain severe. She notes that the pain is worse with ambulation, and better with rest. The pain has been associated with some nausea, and vomiting. That happened 2 days ago. She is also constipated for the last 2 days she admits to being constipated because the pain has prevented her from going to the bathroom. The patient denies any urinary complaints. According to the ER provider the patient had some urine studies sent yesterday and it showed that she had a UTI and an elevated pro-calcitonin, on reviewing her labs today the patient was sent here for further evaluation In the ER the patient had a low-grade temperature 99.9, heart rate 85 blood pressure 109/67 [had dropped to as low as 71/31] saturating 91% on room air. Chest x-ray shows cardiomegaly no acute infiltrates Labs show WBC count of 18.6, hemoglobin 11.5 platelets 276, lactic acid 1.3, total bili Liang 1.4 sodium 135 potassium 4.5 creatinine 1.6 bicarbonate 23 glucose 97. CRP elevated at 37.7, pro calcitonin elevated at 7.28. The patient is being admitted to the hospital for further management Pt wishes for DNR, comfort care? but ok with bipap? notes ok to do what we feel is needed to help her. POA was called by ER provider, it seems they are ok with interventions . 03/16 Patient seen and examined, no acute overnight events. Back pain is somewhat better today. Blood cultures positive for gram-positive cocci on speaking with the labs this it is strep agalactiae. We will send the urine for culture as it seems that reflux cultures were not sent. Vancomycin started I have final isolation and sensitivity dose of Rocephin increased to [address] abdomen and pelvis done some perinephric stranding possible for pyelonephritis. MRI of thoracic and lumbar vertebrae done to rule out ostium mellitus, then negative 03/17 Patient seen and examined, no acute overnight events. Repeat blood cultures in progress Continue antibiotics for now back pain is improving Pertinent ROS: Denies headache, dizziness Denies chest pain, palpitations Denies cough or shortness of breath Denies abdominal pain, nausea or vomiting. back pain present but improving - Constitutional Vitals: Vital Signs Temp Pulse Resp BP Pulse Ox 98.9 F 84 20 126/60 94 03/17/18 12:00 03/17/18 03:36 03/17/18 12:00 03/17/18 12:00 03/17/18 12:00 Period Temp Pulse Resp BP Sys/Amador Pulse Ox Last 24 Hr 97.9 F-99 F 84-88 16-20 112-126/57-64 92-96 Intake and Output 03/17/18 03/17/18 03/17/18 05:59 13:59 21:59 Intake Total 1200 / 2892 550 / 650 100 / 650 Balance 1200 / 2467 550 / 650 100 / 650 Intake & Output: Intake & Output 03/17/18 03/17/18 03/17/18 05:59 13:59 21:59 Intake Total 1200 / 2892 550 / 650 100 / 650 Balance 1200 / 2467 550 / 650 100 / 650 Intake: IV 1100 / 2292 550 / 650 100 / 650 Dextrose 5%-1/2Ns W/20Meq KCl 1 1000 / 1992 ,000 ml @ 75 mls/hr IV .[id number] [facility] Rx#:[id number] Vancomycin 1,500 mg In Sodium 500 / 500 Chloride 0.9% 500 ml @ 333.3 mls/hr IV DAILY [facility] Rx#: [id number] Rocephin 2 gm In Dextrose 5% in 50 / 50 Water 50 ml @ 100 mls/hr IV DAILY [facility] Rx#:[id number] Oral 100 / 600 Other: Urine Appearance Uretheral (Bennett) Cloudy Urine Color Uretheral (Bennett) Dark Yellow Exam: Constitutional; Afebrile, cooperative, alert, not in distress. Respiratory system: Air Entry equal on both sides, No crackles or wheezing, no rhonchi. CVS- Rate rhythm irregular, S1,S2 heard, no gallop, no rub. Abdomen- Soft nontender abdomen, no organomegaly, no tenderness, no guarding or rigidity, ADMITTING MANAGER- AOOx2, moving all extremities, no gross focal deficit noted. Medical - PN: Obj Da - Labs CBC & Chem 7: 03/17/18 04:40 03/17/18 04:40 Labs: Abnormal Lab Results 03/17/18 03/17/18 03/16/18 04:40 04:40 10:00 WBC RBC 3.10 L Hgb 10.2 L Hct 30.3 L Gran % Lymph % (Auto) 11.8 L Gran # Lymph # (Auto) 1.2 L Jenkins # (Auto) 1.1 H BUN 25 H Creatinine 1.5 H Glucose 116 H 117 H Phosphorus 2.6 L Total Bilirubin C-Reactive Protein Albumin 2.7 L Globulin 4.1 H Albumin/Globulin Ratio 0.8 L 0.8 L Urine Protein Urine Occult Blood Ur Leukocyte Esterase Urine WBC Ur Squamous Epith Cells Urine Bacteria 03/16/18 03/15/18 03/15/18 10:00 14:00 13:51 WBC 15.4 H RBC 3.59 L Hgb 11.5 L Hct 34.9 L Gran % 83.6 H Lymph % (Auto) 8.2 L Gran # 12.8 H Lymph # (Auto) 1.3 L Jenkins # (Auto) 1.2 H BUN Creatinine Glucose Phosphorus Total Bilirubin C-Reactive Protein 32.7 H Albumin Globulin Albumin/Globulin Ratio Urine Protein 30 A Urine Occult Blood 0.03 A Ur Leukocyte Esterase 500 A Urine WBC > 182 H Ur Squamous Epith Cells 14 H Urine Bacteria Many A 03/15/18 03/15/18 13:30 13:30 WBC 18.6 H RBC 3.59 L Hgb 11.5 L Hct 35.0 L Gran % 84.6 H Lymph % (Auto) 8.6 L Gran # 15.8 H Lymph # (Auto) Jenkins # (Auto) 1.2 H BUN 28 H Creatinine 1.6 H Glucose Phosphorus Total Bilirubin 1.4 H C-Reactive Protein Albumin Globulin 4.0 H Albumin/Globulin Ratio 0.9 L Urine Protein Urine Occult Blood Ur Leukocyte Esterase Urine WBC Ur Squamous Epith Cells Urine Bacteria Meds: Medications Albuterol Sulfate (Ventolin) 2.5 mg NEB Q2HP PRN PRN Reason: Shortness Of Breath Baclofen (Lioresal) 5 mg PO TID [facility] Last Admin: 03/17/18 14:21 Dose: 5 mg Documented by: Bisacodyl (Dulcolax) 10 mg [place] DAILYP PRN PRN Reason: Constipation Docusate Sodium (Colace) 100 mg PO BIDP PRN PRN Reason: Constipation Hydromorphone HCl (Dilaudid) 0.5 mg IV Q2HP PRN PRN Reason: PAIN LEVEL > 6 Potassium Chloride/Dextrose/Sod Cl (Dextrose 5%-1/2ns W/20meq Kcl) 1,000 mls @ 75 mls/hr IV .[id number] [facility] Last Admin: 03/17/18 01:56 Dose: 75 mls/hr Documented by: Acetaminophen (Ofirmev) 1,000 mg in 100 mls @ 200 mls/hr IV Q8H [facility] Last Infusion: 03/17/18 14:06 Dose: Infused Documented by: Ceftriaxone Sodium 2 gm/ (Dextrose) 50 mls @ 100 mls/hr IV DAILY [facility] Last Infusion: 03/17/18 09:25 Dose: Infused Documented by: Vancomycin HCl 1,500 mg/ (Sodium Chloride) 500 mls @ 333.3 mls/hr IV DAILY [facility] Last Infusion: 03/17/18 12:47 Dose: Infused Documented by: Lactobacillus Rhamnosus (Culturelle) 1 cap PO BID [facility] Last Admin: 03/17/18 08:52 Dose: 1 cap Documented by: Methocarbamol (Robaxin) 750 mg IV Q6HP PRN PRN Reason: Muscle Spasm Last Admin: 03/16/18 10:02 Dose: 750 mg Documented by: Naloxone HCl (Narcan) 0.1 mg IV Q2MIN PRN PRN Reason: Opiate Reversal Nitroglycerin (Nitrostat) 0.4 mg SL Q5M PRN PRN Reason: Chest Pain Ondansetron HCl (Zofran) 4 mg IV Q6HP PRN PRN Reason: Nausea And Vomiting Oxycodone HCl (Roxicodone) 5 mg PO Q4HP PRN PRN Reason: PAIN LEVEL 3-6 Last Admin: 03/17/18 08:53 Dose: 5 mg Documented by: Rivaroxaban (Xarelto) 15 mg PO QPMCC [facility] Last Admin: 03/16/18 17:02 Dose: 15 mg Documented by: Sertraline HCl (Zoloft) 25 mg PO DAILY [facility] Last Admin: 03/17/18 08:52 Dose: 25 mg Documented by: Sodium Biphosphate/Sodium Phosphate (Fleets Adult) 1 dose [place] DAILYP PRN PRN Reason: Constipation Sodium Chloride (Saline Flush) 10 ml IV Q8 [facility] Last Admin: 03/17/18 14:26 Dose: Not Given Documented by: Vancomycin HCl (Vancomycin Per Pharmacy) 1 order IV UD [facility] Medical - PN: A/P - Time Spent With Patient Total time spent is greater than 50% in coordination of care (as documented) at patient's floor/unit and/or counseling patient: - Narrative A/P Narrative: A/P Acute pyelonephritis, -Patient has back pain, UTI clinically has pyelonephritis, treated with IV Rocephin, urine cultures blood culture sent de-escalate antibiotics per sensitivity gram positive bacteremia -get echo, mri spine t and l is negative, d/c vanco, strep should be covered by rocephin. Back pain, severe -She also has significant muscle spasm it seems along with flank tenderness, I will treat this with IV Tylenol and narcotics as needed. Use methocarbamol for muscle relaxation see how she responds. neg MR for infection in spine. resume baclofen Sepsis -stable bp, clinically improving. wbc normalized h/o Atrial fibrillation -Heart rate is stable, metoprolol at home hold medication for now patient takes Xarelto for anticoagulant h/o CVA -Ambulates with cane or walker at baseline. Hypertension -Hold blood pressure medications for now, resume once blood pressure is stable from over 24 hours Osteoporosis/Obesity (BMI > 30), GERD, Hyperlipidemia -Resume home medications as appropriate, continue outpatient therapy Diet Cardiac DNR code status OT/PT/ST eval Medical - PN: Qual - VTE Deep Vein Thrombosis/Pulmonary Embolism Present on Admission: No
[2018-03-17] MEDS: RIVAROXABAN 15 MG TABLET PO SCH (18:15)
[2018-03-18] MEDS: METHOCARBAMOL 1,000 MG/10 ML VIAL IV PRN (00:23)
[2018-03-18] MEDS: oxyCODONE HCL 5 MG TABLET PO PRN ×2 (00:24→14:29)
[2018-03-18] MEDS: ACETAMINOPHEN 1,000 MG/100 ML BOTTLE IV SCH ×2 (02:27→10:48)
[2018-03-18] MEDS: DEXTROSE 5%-1/2NS W/20MEQ KCL 1,000 ML IV SCH (04:25)
[2018-03-18] MEDS: 0.9 % SODIUM CHLORIDE 10 ML SYRINGE IV SCH (04:26)
[2018-03-18 06:30] LABS: Basophils # (Auto) 0 K/mcL (0.0-0.3); Basophils % (Auto) 0.3 % (0.0-2.0); Eosinophils # (Auto) 0.2 K/mcL (0.0-0.7); Eosinophils % (Auto) 1.7 % (0.0-7.0); Granulocytes % (Auto) 70.1 % (38.0-78.0); Lymphocytes # (Auto) 1.5 K/mcL (1.5-4.8); Lymphocytes % (Auto) 15.4 % (15.5-49.0); Mean Corpuscular HGB Conc 33.2 g/dL (31.0-36.0); Monocytes # (Auto) 1.2 K/mcL (0.1-0.9); Monocytes % (Auto) 12.5 % (1.0-12.0); Platelet Count 269 K/mcL (140-440); RBC 3.04 M/mcL (4.00-5.20); Red Cell Distribution Width 13.2 % (11.5-14.5)
[2018-03-18 07:03] LABS: ALT/SGPT 8 U/l (0-40); Albumin 2.4 gm/dL (3.2-5.2); Albumin/Globulin Ratio 0.7 (1.0-2.3); Alkaline Phosphatase 91 U/L (39-117); Bilirubin,Direct < 0.2 mg/dL (0.0-0.3); Blood Urea Nitrogen 12 mg/dl (8-23); Gamma Glutamyl Transpeptidase 50 U/L (5-36)
[2018-03-18] MEDS: LACTOBACILLUS 1 CAPSULE PO SCH (10:50)
[2018-03-18] MEDS: SERTRALINE 50 MG TABLET PO SCH (10:50)
[2018-03-18] MEDS: BACLOFEN 10 MG TABLET PO SCH (10:50)
[2018-03-18] MEDS: cefTRIAXone 2 GM in DEXTROSE 5% IN WATER 50 ML IV SCH (11:36)
--- NOTE | 2018-03-18 14:01 | Discharge Summary ---
Medical - DS: Prov Patient information: Note initiated : 03/18/18 at 1:56 pm Service Date, if different from initiated Date: [] Patient: Lakisha Bills 82 y/o F admitted on 03/15/18 for Abd Pain, Constipation. Chief Complaint: [] Date of admission: 03/15/18 17:17 Discharge date: 03/18/18 Primary care physician: Jethro Borja Consults: 03/15/18 Consult to Physician [CONS] Stat Comment: Consulting Provider: Vaughn Pryor Reason For Exam: Physician to Consult Discharging clinician: Vaughn Pryor Medical - DS: Meds - Discharge Medications Prescriptions: Acetaminophen [Acetaminophen Extra Strength] 1,000 mg PO TID #100 tab Levofloxacin [Levaquin] 750 mg PO DAILY #10 tab oxyCODONE HCL [Roxicodone] 5 mg PO Q4HP PRN #40 tab PRN Reason: Pain Active and Home Medications: Home Medications Acetaminophen [Tylenol] 650 mg PO BIDP PRN 08/21/16 [History Confirmed 03/17/18 Last Taken 03/14/18] Bisacodyl [Dulcolax] 10 mg UT DAILYP PRN 08/21/16 [History Confirmed 03/17/18 Last Taken Unknown] Docusate Sodium [Colace] 100 mg PO BIDP PRN 08/21/16 [History Confirmed 03/15/18 Last Taken Unknown] Na Phos,M-B/Na Phos,Di-Ba [Fleets Adult] 1 tube UT PRN PRN 08/21/16 [History Confirmed 03/17/18 Last Taken 03/15/18] Sertraline HCl [Zoloft] 25 mg PO DAILY 08/21/16 [History Confirmed 03/17/18 Last Taken 03/15/18] Baclofen 5 mg PO TID 03/15/18 [History Confirmed 03/17/18 Last Taken 03/15/18] Furosemide [Lasix] 40 mg PO DAILY 03/15/18 [History Confirmed 03/17/18 Last Taken 03/15/18] HYDROcodone/APAP 5/325MG [[place] 5-325Mg] 1 tab PO Q6HP PRN 03/15/18 [History Confirmed 03/17/18 Last Taken 03/15/18] LORazepam [Ativan] 2 mg IM ONCE PRN 03/15/18 [History Confirmed 03/17/18 Last Taken 04/11/17] Lactobacillus [Culturelle] 1 cap PO BID 03/15/18 [History Confirmed 03/17/18 Last Taken 03/15/18] Loperamide [Imodium] 2 mg PO PRN PRN 03/15/18 [History Confirmed 03/15/18 Last Taken Unknown] Magnesium Hydroxide [Milk of Magnesia] 400 mg PO PRN PRN 03/15/18 [History Confirmed 03/15/18 Last Taken Unknown] Metoprolol Tartrate 100 mg PO BID 03/15/18 [History Confirmed 03/17/18 Last Taken 03/15/18] Nitroglycerin [Nitrostat] 0.4 mg SL Q5MINP PRN 03/15/18 [History Confirmed 03/15/18 Last Taken Unknown] Ondansetron HCl [Zofran] 8 mg PO Q8H PRN 03/15/18 [History Confirmed 03/17/18 Last Taken 03/14/18] Ranitidine HCl [Heartburn Relief] 75 mg PO BID 03/15/18 [History Confirmed 03/17/18 Last Taken 03/15/18] Rivaroxaban [Xarelto] 20 mg PO DAILY 03/15/18 [History Confirmed 03/17/18 Last Taken 03/14/18] Spironolactone [Aldactone] 25 mg PO DAILY 03/15/18 [History Confirmed 03/17/18 Last Taken 03/15/18] Telmisartan [Micardis] 80 mg PO DAILY 03/15/18 [History Confirmed 03/17/18 Last Taken 03/15/18] Vits A and D/White Pet/Lanolin [A and D Ointment] 42.5 gm TP PRN PRN 03/15/18 [History Confirmed 03/15/18 Last Taken Unknown] amLODIPine [Norvasc] 10 mg PO DAILY 03/15/18 [History Confirmed 03/17/18 Last Taken 03/15/18] Medical - DS: Hosp Hospital course: Ms. Bills is a 82 year old F who lives in a fpc, history of CVA, usually ambulates with the help of a walker comes to the emergency room for evaluation of back pain that has been going on for the last 1 week. The patient notes that the back pain started a week ago H in the mid and lower back, and radiates on the sides as well as the flanks. Patient notes that the pain has been constant since then, the patient rates the pain severe. She notes that the pain is worse with ambulation, and better with rest. The pain has been associated with some nausea, and vomiting. That happened 2 days ago. She is also constipated for the last 2 days she admits to being constipated because the pain has prevented her from going to the bathroom. The patient denies any urinary complaints. According to the ER provider the patient had some urine studies sent yesterday and it showed that she had a UTI and an elevated pro-calcitonin, on reviewing her labs today the patient was sent here for further evaluation In the ER the patient had a low-grade temperature 99.9, heart rate 85 blood pressure 109/67 [had dropped to as low as 71/31] saturating 91% on room air. Chest x-ray shows cardiomegaly no acute infiltrates Labs show WBC count of 18.6, hemoglobin 11.5 platelets 276, lactic acid 1.3, total bili Liang 1.4 sodium 135 potassium 4.5 creatinine 1.6 bicarbonate 23 glucose 97. CRP elevated at 37.7, pro calcitonin elevated at 7.28. The patient is being admitted to the hospital for further management Pt wishes for DNR, comfort care? but ok with bipap? notes ok to do what we feel is needed to help her. POA was called by ER provider, it seems they are ok with interventions . 03/16 Patient seen and examined, no acute overnight events. Back pain is somewhat better today. Blood cultures positive for gram-positive cocci on speaking with the labs this it is strep agalactiae. We will send the urine for culture as it seems that reflux cultures were not sent. Vancomycin started I have final isolation and sensitivity dose of Rocephin increased to [address] abdomen and pelvis done some perinephric stranding possible for pyelonephritis. MRI of thoracic and lumbar vertebrae done to rule out ostium mellitus, then negative 03/17 Patient seen and examined, no acute overnight events. Repeat blood cultures in progress Continue antibiotics for now back pain is improving 03/18 PT seen examined, still has back pain, but sepsis syndrome resolved, pain in back is also improving. labs stable, repeat cultures are negative stable for d/c back to snf, with rehab for back pain In Summary A/P Acute pyelonephritis, with bactermia Strep aglacate bactremia, IV rocephin given, pt is sensitive to fluroquinoloes. Pt to be discharged on levofloxacin 750 mg once daily for another 10 days to complete a 14-day course. Echocardiogram was negative for endocarditis, MRI of the thoracic and lumbar spine was negative for ostium mellitus or discitis Back pain, severe -Looks like this is a chronic issue worsened with the acute infection. Patient also has a fracture old in the thoracic vertebrae. I will discharge the patient on scheduled Tylenol 1 g 3 times a day, as needed oxycodone she can continue the home dose of baclofen. If the patient's pain persists despite therapy and pain regimen she may be referred outpatient to a pain clinic Rest of the stay in the hospital was unremarkable, no changes made to a chronic home medications [except the pain regimen] Discharge diagnosis: Pyelonephritis, back pain - Time Spent with Patient Total time spent providing and/or coordinating discharge services: Greater than 30 minutes Medical - DS: Exam - Constitutional Vitals: Vital Signs Temp Pulse Resp BP Pulse Ox 03/18/18 12:00 94 03/18/18 11:47 98.3 F 104 H 14 135/68 94 03/18/18 08:00 93 03/18/18 06:29 96.4 F L 99 H 18 127/68 94 03/18/18 04:00 97.3 F 94 H 16 123/62 93 03/18/18 00:00 98.2 F 86 20 134/72 93 03/17/18 21:50 96 03/17/18 19:34 97 03/17/18 19:15 98.6 F 96 H 24 H 134/71 97 03/17/18 16:00 98.3 F 20 119/68 92 Intake and Output 03/17/18 03/18/18 03/18/18 21:59 05:59 13:59 Intake Total 1450 / 2100 100 / 2100 Output Total 575 / 1200 625 / 1200 Balance 875 / 900 -525 / 900 Intake: IV 1200 / 1850 100 / 1850 Dextrose 5%-1/2Ns W/20Meq KCl 1 1000 / 1000 ,000 ml @ 75 mls/hr IV .[id number] [facility] Rx#:[id number] Oral 250 / 250 0 / 250 Output: Urine Catheter Amount 575 / 1200 625 / 1200 Other: Urine Appearance Clear Clear Uretheral ([place]) Cloudy Urine Color Bright Yellow Dark Yellow Uretheral ([place]) Bright Yellow Urine Odor Normal Weight 218 lb 8 oz Additional comments: Constitutional; Afebrile, cooperative, alert, not in distress. Respiratory system: Air Entry equal on both sides, No crackles or wheezing, no rhonchi. CVS- Rate rhythm irregular, S1,S2 heard, no gallop, no rub. Abdomen- Soft nontender abdomen, no organomegaly, no tenderness, no guarding or rigidity, SR. [employer]GER- AOOx3, moving all extremities, no gross focal deficit noted. Medical - DS: Data Labs on day of discharge: Labs from last 24 hours 03/18/18 03/18/18 03/18/18 08:12 04:55 04:55 WBC 9.5 RBC 3.04 L Hgb 9.8 L Hct 29.5 L MCV 97.0 MCH 32.2 MCHC 33.2 RDW 13.2 Plt Count 269 MPV 9.5 Gran % 70.1 Lymph % (Auto) 15.4 L [place] % (Auto) 12.5 H Eos % (Auto) 1.7 Baso % (Auto) 0.3 Gran # 6.6 Lymph # (Auto) 1.5 [place] # (Auto) 1.2 H Eos # (Auto) 0.2 Baso # (Auto) 0 Sodium 135 Potassium 4.5 Chloride 104 Carbon Dioxide 22 Anion Gap 9.0 BUN 12 Creatinine 0.9 GFR Calculation 60 Glucose 113 H Uric Acid 5.0 Calcium 8.5 L Phosphorus 2.9 Magnesium 2.1 Total Bilirubin 0.4 Direct Bilirubin < 0.2 GGT 50 H AST 11 ALT 8 Alkaline Phosphatase 91 Lactate Dehydrogenase 188 Total Protein 6.0 Albumin 2.4 L Globulin 3.6 Albumin/Globulin Ratio 0.7 L Triglycerides 87 Vancomycin Trough 12.3 Preliminary micro results at discharge 03/17/18 08:37 Blood Culture - Preliminary Blood 03/15/18 14:48 Blood Culture - Preliminary Blood Gram positive cocci Medical - DS: A/P - Patient/Caregiver Discharge Instructions Activity: as per physical therapy Diet: Cardiac Additional Instructions: Take Tylenol 1 g 3 times a day scheduled. Use oxycodone intermittently as prescribed for breakthrough pain. Take levofloxacin 750 mg once a day for total of 10 more days If the pain is not better, consider referral to pain clinic. Go to the emergency room if chest pain shortness of breath fever or any other acute concerning symptom - Follow up Plan Follow up with: Jethro Borja MD [Primary Care Provider] - Disposition: Xfer SNF Prognosis: Fair Rehab Potential: Fair I certify that the patient requires SNF services: Yes Overall status at discharge: patient is progressing back to baseline Medical - DS: Qual - VTE Deep Vein Thrombosis/Pulmonary Embolism Present on Admission: No
[2018-03-18] MEDS ORDERED: RIVAROXABAN 20 MG TABLET PO SCH (17:30)
== END 2018-03-18 15:00 | DRG 872 ==
LOC: ED 12:57 → MEDSUR 17:17
PROVIDERS: ADMIT Internal Medicine; ATTEND Internal Medicine